=== PATIENT | female | born 1945 | race Caucasian/White ===

== ENCOUNTER 2020-09-15 21:30 | Emergency (ER) | payer MEDICARE | END 2020-09-15 23:18 | disposition home or self-care (01) | LOC: FER 21:30 | DX: S80.01XA Contusion of right knee, initial encounter (principal); S00.83XA Contusion of other part of head, initial encounter; I10 Essential (primary) hypertension; W18.09XA Striking against other object with subsequent fall, initial encounter; Z88.5 Allergy status to narcotic agent | CPT/HCPCS: 70486; 73564 ==